=== PATIENT | female | born 1960 | race American Indian/Alaskan Native ===

== ENCOUNTER 2016-07-13 19:20 | Observation (INO) | payer BC ==
[2016-07-13 20:06] VITALS: TEMP 97.9
[2016-07-13] MEDS ORDERED: Oxycodone/Acetaminophen 5/325 mg Tab PO ONE (20:47)
[2016-07-13] MEDS ORDERED: Oxycodone/Acetaminophen 5/325 mg Tab ONE (20:51)
--- NOTE | 2016-07-13 21:05 | ED PDOC ---
HPI: General Adult Time Seen by Provider: 07/13/16 19:45 Chief Complaint (Nursing): Back Pain Chief Complaint (Provider): Left-Sided Flank Pain History Per: Patient, Family (Patient's daughter) History/Exam Limitations: no limitations Additional Complaint(s): 20:10 Maura Rodríguez is a 56 year old female with a history of hypertension, hyperlipidemia, fibromyalgia, and ovarian cancer, as well as a past surgical history of hysterectomy and C-sections presents to the ED with a chief complaint of left-sided lank pain that she has been experiencing for the past few days. Patient had a CT Scan done yesterday and a cyst was found in her left kidney. Out of concern that the cyst was bleeding, patient was referred to the ED. She reports that she took one tab Percocet for pain around 16:00, as well as denies any pedal edema, dysuria, or any problems with her stool. Of Note: Patient is allergic to soy and penicillins, and states that she cannot have morphine. Past Medical History Reviewed: Historical Data, Nursing Documentation, Vital Signs Vital Signs: Last Vital Signs Temp 97.9 F 07/13/16 20:02 Pulse 80 07/14/16 00:07 Resp 18 07/14/16 00:07 BP 125/95 H 07/14/16 00:07 Pulse Ox 100 07/14/16 01:02 - Medical History PMH: HTN Denies: Anxiety, Bipolar Disorder, Depression, Personality Disorder, Post Traumatic Stress Disorder, Schizophrenia - Family History Family History: States: Unknown Family Hx - Immunization History Hx Tetanus Toxoid Vaccination: No Hx Influenza Vaccination: No Hx Pneumococcal Vaccination: No - Home Medications Home Medications: Ambulatory Orders Medication Instructions Recorded Cyclobenzaprine [Cyclobenzaprine 10 mg PO Q8 #30 tab 05/12/15 HCl] Ezetimibe [Zetia] 10 mg PO DAILY 05/12/15 Losartan [Cozaar] 50 mg PO DAILY 05/12/15 Naproxen 500 mg PO BID #30 tab 05/12/15 Oxycodone HCl/Acetaminophen 1 tab PO PRN PRN 05/12/15 [Percocet 10-325 mg Tablet] Cyclobenzaprine [Cyclobenzaprine 10 mg PO BID #15 tab 07/14/16 HCl] Hydrocodone/Acetaminophen [Vicodin 1 each PO Q6 #10 tablet 07/14/16 Es 7.5-300 mg Tablet] - Allergies Allergies/Adverse Reactions: Allergies Allergy/AdvReac Type Severity Reaction Status Date / Time Penicillins Allergy ANAPHYLAXIS Verified 07/13/16 20:02 Review of Systems Cardiovascular: Negative for: Edema Gastrointestinal: Negative for: Constipation Genitourinary Female: Negative for: Dysuria, Hematuria Musculoskeletal: Positive for: Other (left sided flank pain) Physical Exam - Reviewed Nursing Documentation Reviewed: Yes Vital Signs Reviewed: Yes - Physical Exam Appears: Positive for: Non-toxic, No Acute Distress Head Exam: Positive for: ATRAUMATIC, NORMOCEPHALIC Skin: Positive for: Normal Color, Warm Eye Exam: Positive for: Normal appearance, EOMI, PERRL Cardiovascular/Chest: Positive for: Regular Rate, Rhythm. Negative for: Murmur Respiratory: Positive for: Normal Breath Sounds. Negative for: Wheezing Gastrointestinal/Abdominal: Positive for: Soft, Tenderness (minimal LUQ tenderness) Neurologic/Psych: Positive for: Alert, Oriented (x3) - Laboratory Results Result Diagrams: 07/13/16 21:12 07/13/16 21:12 - ECG O2 Sat by Pulse Oximetry: 100 (RA) Pulse Ox Interpretation: Normal Medical Decision Making Medical Decision Makin:47 Initial Impression: Left Flank Pain due to Cyst in Kidney Initial Plan: * CMP * CBC * Oxycodone 1 tab PO * US Renal * Reevaluation CT Scan Results Impression: S/P hysterectomy, bilateral salpingo-oophorectomy and pelvic lymph node dissection. No evidence of metastatic disease in the abdomen and pelvis. There are no adrenal nodules, there are no renal stones or hydronephrosis. There is a stable 6 mm hyperdense lesion in the posterior left kidney seen on the noncontrast images which most likely represents a hemorrhagic cyst. 2307: Patient informed of delay due to technical difficulties with duplex. Awaiting duplex. pt aware of lab results. hemoglobin stable. pt denies active bleeding or pain at this time. resting comforotably in bed with daughter by side. answered all questions. Patient s/o to Dr. Fernandez at 0000 pending US results. Scribe Attestation: Documented by Patito Alcantar, acting as a scribe for Nora Tello MD. Provider Scribe Attestation: All medical record entries made by the Scribe were at my direction and personally dictated by me. I have reviewed the chart and agree that the record accurately reflects my personal performance of the history, physical exam, medical decision making, and the department course for this patient. I have also personally directed, reviewed, and agree with the discharge instructions and disposition. Disposition - Clinical Impression Clinical Impression: Kidney cyst, acquired - Patient ED Disposition Is Patient to be Admitted: Transfer of Care - Disposition Disposition: Transfer of Care Disposition Time: 23:00 Condition: STABLE Patient Signed Over To: Xu Fernandez Handoff Comments: pending US results and reeval.
[2016-07-13 21:17] LABS: BASO % 0.2 % (0.0-2.0); EOS # 0.2 K/uL (0.0-0.7); EOS % 2.8 % (0.0-4.0); HEMATOCRIT 38.2 % (34.0-47.0); LYMPH % 36.7 % (20.0-40.0); MEAN CELL VOLUME 96.7 fl (81.0-99.0); MEAN CORPUSCULAR HEMOGLOBIN 31.6 pg (27.0-31.0); MEAN CORPUSCULAR HGB CONC 32.7 g/dL (33.0-37.0); MEAN PLATELET VOLUME 7.8 fl (7.2-11.7); MONO # 0.7 K/uL (0.0-0.8); MONO % 8.8 % (0.0-10.0); NEUT # 4.2 K/uL (1.8-7.0); NEUT % 51.5 % (50.0-75.0); NRBC % 0.1 % (0.0-0.0); RED CELL DISTRIBUTION WIDTH 12.8 % (11.5-14.5); WHITE BLOOD COUNT 8.1 K/uL (4.8-10.8)
[2016-07-13 21:42] LABS: ALB/GLOB RATIO 1.2 (1.0-2.1); ALKALINE PHOSPHATASE 82 U/L (38-126); ALT/SGPT 27 U/L (9-52); AST/SGOT 29 U/L (14-36); BILIRUBIN,TOTAL 0.5 mg/dl (0.2-1.3); BLOOD UREA NITROGEN 18 mg/dl (7-17); CARBON DIOXIDE 26 mmol/L (22-30); CHLORIDE 105 mmol/L (98-107); GFR AFRICAN-AMERICAN > 60; GLUCOSE,RANDOM 88 mg/dL (65-105); POTASSIUM 4.5 MMOL/L (3.6-5.0); SODIUM 142 mmol/l (132-148); TOTAL PROTEIN 7.6 G/DL (6.3-8.2)
[2016-07-13 22:46] LABS: RBC URINE < 1 /hpf (0-3); URINE BACTERIA RARE (<OCC); URINE BILIRUBIN NEGATIVE (NEGATIVE); URINE BLOOD NEGATIVE (NEGATIVE); URINE COLOR STRAW (YELLOW); URINE GLUCOSE (UA) NEGATIVE (Normal); URINE KETONE NEGATIVE (NEGATIVE); URINE LEUKOCYTE ESTERASE NEGATIVE Leu/uL (Negative); URINE PROTEIN NEGATIVE (NEGATIVE); URINE UROBILINOGEN 0.2 mg/dL (0.2-1.0); WBC URINE < 1 /hpf (0-5)
--- NOTE | 2016-07-14 00:02 | ED PDOC ---
- Laboratory Results Result Diagrams: 07/13/16 21:12 07/13/16 21:12 - ECG O2 Sat by Pulse Oximetry: 100 (RA) Medical Decision Making Medical Decision Making: Patient s/o from Dr. Tello at 0000 pending US results. 0041: US impression: 1. No acute findings. 0050: Pt. states that u/s exacerbated pain, will order percocet. Will prescribe short course of vicodin for cancer pain. told pt. to f/u w/ neprhologist tomorrow and to return to ED for worsening or concerning symptoms. Scribe Attestation: Documented by Jes Low acting as a scribe for Xu Fernandez MD. Provider Scribe Attestation: All medical record entries made by the Scribe were at my direction and personally dictated by me. I have reviewed the chart and agree that the record accurately reflects my personal performance of the history, physical exam, medical decision making, and the department course for this patient. I have also personally directed, reviewed, and agree with the discharge instructions and disposition. Disposition - Clinical Impression Clinical Impression: Kidney cyst, acquired - POA Present On Arrival: None - Disposition Disposition: Routine/Home Disposition Time: 00:50 Condition: IMPROVED
[2016-07-14 00:08] VITALS: BP 125/95; PULSE 80; RESP 18
[2016-07-14 00:55] VITALS: O2SAT 100
[2016-07-14] MEDS ORDERED: Oxycodone/Acetaminophen 5/325 mg Tab ONE (00:56)
[2016-07-14] MEDS ORDERED: Oxycodone/Acetaminophen 5/325 mg Tab PO ONE (00:58)
--- NOTE | 2016-07-14 11:50 | US ---
PROCEDURE: Ultrasound of the Kidneys HISTORY: evaluate left kidney for cyst COMPARISON: None available. TECHNIQUE: Sonogram of the kidneys. FINDINGS: RIGHT KIDNEY: Measures: 9.6 cm. Normal in size, contour and echogenicity. No stone, solid mass lesion or hydronephrosis visualized. LEFT KIDNEY: Measures: 8.7 cm. Normal in size, contour and echogenicity. No stone, solid mass lesion or hydronephrosis visualized. OTHER FINDINGS: Limited evaluation of decompressed urinary bladder demonstrates no significant finding. Grossly limited. IMPRESSION: Unremarkable renal ultrasound examination. Please note that note is made of outside CT examination demonstrating 6 mm cyst in left kidney. This is not evident on today's examination. Preliminary interpretation of this examination was reported by [facility] at 12:41 a.m. on 07/14/2016. There is concurrence of this report with the preliminary interpretation.
== END 2016-07-14 00:48 | disposition home or self-care (01) ==
LOC: H.ER 19:20 → H.EROBSV 22:00
PROVIDERS: ADMIT Emergency Medicine; ATTEND Emergency Medicine
DX: N28.1 Cyst of kidney, acquired (principal); I10 Essential (primary) hypertension; Z85.43 Personal history of malignant neoplasm of ovary; Z90.710 Acquired absence of both cervix and uterus
CPT/HCPCS: 76770; 80053; 81003; 85025; 87086; 99283; G0378